=== PATIENT | female | born 1985 | race Caucasian/White ===

== ENCOUNTER → 2022-07-26 | Outpatient (CLI) | payer MEDICARE, MEDICAID, SELFPAY ==
--- NOTE | 2022-07-26 10:48 | ECHOCS_ITS ---
Reason For Study: Dyspnea/SOB Procedure This was a 2D Doppler, Color Flow transthoracic echocardiogram. The study was technically difficult. Contrast injection was performed. Exam performed in department. Left Ventricle Normal LV size. Left ventricular systolic function is normal. The estimated ejection fraction is 65 %. No regional wall motion abnormalities noted. Right Ventricle Normal RV size. Normal systolic function. Atria Normal left atrium. Normal right atrium. Mitral Valve Mitral valve not well visualized. Tricuspid Valve Normal tricuspid valve. Mild tricuspid valve insufficiency. Pulmonary artery systolic pressure is 28 mmHg. Aortic Valve The aortic valve is not well visualized. Pulmonic Valve The pulmonic valve is not well visualized. Great Vessels Normal aortic root. Pericardium/Pleural No pericardial effusion. Medication 20 gauge I.V. with prn adaptor inserted into right arm. Diluted definity 2.5ml given slow IV push to enhance endocardial definition. MMode/2D Measurements & Calculations LVIDd: 4.1 cm IVSd: 1.1 cm Ao root diam: 3.0 cm LVIDs: 2.7 cm LVPWd: 1.2 cm LA dimension: 3.8 cm RVDd: 3.5 cm FS: 33.9 % LAV(MOD-bp): 35.4 ml LA A4 area: 18.3 cm2 RA A4 area: 13.6 cm2 LAV(MOD-bp) Indexed: 16.0 ml/m2 LAV(MOD-sp2): 23.6 ml LAV(MOD-sp4): 50.2 ml Time Measurements MV dec time: 0.21 sec Doppler Measurements & Calculations MV E max jori: 81.1 cm/sec Lat Peak E' Jori: 11.5 cm/sec Med Peak E' Jori: 10.1 cm/sec MV A max jori: 81.6 cm/sec E/E' lat: 7.1 E/E' med: 8.0 MV E/A: 0.99 MV V2 max: 94.2 cm/sec MV P1/2t max jori: 95.1 cm/sec Ao V2 max: 156.0 cm/sec MV max P.5 mmHg MV P1/2t: 67.4 msec Ao max P.7 mmHg MV V2 mean: 49.6 cm/sec MV dec slope: 413.0 cm/sec2 Ao V2 mean: 112.5 cm/sec MV mean P.2 mmHg Ao mean P.7 mmHg MV V2 VTI: 26.0 cm MVA(P1/2t): 3.3 cm2 Ao V2 VTI: 32.3 cm LV V1 max: 127.8 cm/sec PA V2 max: 123.7 cm/sec TR max jori: 247.5 cm/sec LV V1 max P.5 mmHg PA V2 mean: 88.1 cm/sec TR max P.5 mmHg LV V1 mean P.3 mmHg LV V1 mean: 98.8 cm/sec LV V1 VTI: 28.9 cm ECHO/Echo Complete W/ Contrast Interpretation Summary Normal LV size. Left ventricular systolic function is normal. The estimated ejection fraction is 65 %. Pulmonary artery systolic pressure is 28 mmHg. Contrast injection was performed. Ordering Physician: Sandoval Melo Referring Physician: Cat Frausto Performed By: Chuck Lopez RCS
== END | disposition home or self-care (01) ==
LOC: CVS 10:46
PROVIDERS: PCP Physician Assistant Medical; Visit Provider Internal Medicine Critical Care Medicine
DX: R06.02 Shortness of breath (principal)
CPT/HCPCS: 93306; Q9957; A4216; C8929

== ENCOUNTER → 2022-11-10 | Outpatient (CLI) | payer MEDICARE, MEDICAID, SELFPAY ==
[2022-11-10 12:37] LABS: Erythrocyte Sedimentation Rate 16 mm/hr (0-30)
[2022-11-10 12:49] LABS: Absolute Lymphocyte Count 2.41 X10^3/uL (0.83-4.51); Absolute Neutrophil Count 6.9 X10^3/uL (2.0-7.7); Basophil# 0.03 X10^3/uL; Basophil% 0.3 % (0-1); Eosinophil# 0.15 X10^3/uL; Eosinophils% 1.5 % (0-5); Hematocrit 42.4 % (37-47); Lymphocyte # 2.41 X10^3/ul (0.83-4.51); Lymphocyte % 23.7 % (19-41); Mean Corpuscular Hgb 29.2 pg (27.0-32.0); Mean Corpuscular Volume 88.5 fL (81-99); Mean Platelet Vol. 9.5 fl (6.2-12.0); Monocyte# 0.65 X10^3/uL; Monocyte% 6.4 % (0-10); NRBC Flagged by Analyzer 0 % (0-5); Neutrophil # 6.89 X10^3/uL (2.7-7.7); Neutrophil % 67.7 % (47-70); Platelet Count 406 K/mm3 (150-450); RBC Distribution Width CV 12.1 % (11.6-14.6); RBC Distribution Width SD 39.6 fl (35.1-43.9); Red Blood Count 4.79 M/mm3 (4.2-5.4); White Blood Count 10.2 K/mm3 (4.4-11.0)
[2022-11-10 13:05] LABS: ALB/GLOB Ratio 0.9 RATIO (0.9-2.4); AST(SGOT) 33 U/L (15-37); Alanine Aminotransfer ALT/SGPT 41 U/L (13-56); Albumin, Serum 3.4 g/dL (3.2-5.0); Alkaline Phosphatase 92 U/L (45-117); Anion Gap 8 (5-15); BUN 11 mg/dL (7-18); BUN/Creat Ratio 15.4 RATIO (10-20); Calcium,Total 8.9 mg/dL (8.5-10.1); Chloride 104 mmol/L (98-107); Creatinine, Serum 0.72 mg/dL (0.55-1.02); EST Glomerular Filtration Rate 97 mL/min (>60); Est Glom Filt Rate - Afr Amer 118 mL/min (>60); Globulin 3.8 g/dL (2.2-4.2); Glucose 135 mg/dL (74-106); LDH 186 U/L (84-246); Potassium 3.1 mmol/L (3.5-5.1); Protein, Total 7.2 g/dL (6.4-8.2); Sodium Level 138 mmol/L (136-145)
[2022-11-11 16:10] LABS: Anti-Centromere B Ab <0.2 AI (0.0-0.9); Anti-Chromatin <0.2 AI (0.0-0.9); Anti-Jo <0.2 AI (0.0-0.9); Anti-Scleroderma-70 AB <0.2 AI (0.0-0.9); RNP Ab <0.2 AI (0.0-0.9); SJOGREN'S Anti-SS-A test < 0.2 AI (0.0-0.9); SJOGREN'S Anti-SS-B test < 0.2 AI (0.0-0.9); Smith Ab <0.2 AI (0.0-0.9)
[2022-11-11 19:37] LABS: Anti-dsDNA Ab 1 IU/mL (0-9)
[2022-11-13 12:09] LABS: Albumin 3.7 g/dL (2.9-4.4); Alpha-1-Globulins 0.3 g/dL (0.0-0.4); Alpha-2-Globulins 0.9 g/dL (0.4-1.0); Cytoplasmic Ab (C-ANCA) <1:20 titer (Neg:<1:20); Gamma Globulin 1.3 g/dL (0.4-1.8); Immunoglobulin A 354 mg/dL (87-352); Immunoglobulin E 14 IU/mL (6-495); Immunoglobulin G 1076 mg/dL (586-1602); Immunoglobulin M 123 mg/dL (26-217); PROEL- TOTAL PROTEIN 7.4 g/dL (6.0-8.5)
[2022-11-13 12:37] LABS: Perinuclear Ab (P-ANCA) <1:20 titer (Neg:<1:20)
== END | disposition home or self-care (01) ==
PROVIDERS: PCP Physician Assistant Medical; Referring Provider Nurse Practitioner Adult Health; Visit Provider Nurse Practitioner Adult Health
DX: K52.9 Noninfective gastroenteritis and colitis, unspecified (principal)
CPT/HCPCS: 36415; 80053; 82784; 82785; 83615; 84165; 85025; 85652; 86140; 86225; 86235; 86256; 86334

== ENCOUNTER 2022-11-30 12:20 | Day surgery (SDC) | payer MEDICARE, MEDICAID, SELFPAY ==
[2022-11-30] VITALS (7 sets, daily range): BP systolic 111–133; BP diastolic 60–82; PULSE 64–77; RESP 16–18; TEMP 35.9–36.3; O2SAT 96–100; BMI 44.6
[2022-11-30] MEDS: Lactated Ringers 1,000 ML 15 ML IV (12:46)
--- NOTE | 2022-11-30 13:15 | EGD_PTH ---
PATIENT: YURI LOPEZ LOC: EN U#:[id number] AGE/SX: 37/F ROOM: RE11/30/[address]: Dr. Luis Alberto Ng DO : 1985 BED: DIS: 11/30/2022 SPEC #: [id number] RECD: 11/30/22 16:42 STATUS: ADA REAshwin #: [id number] CLAUDE: 11/30/22 13:[address]: Luis Alberto Ng DEPT: SURGICAL PATHOLOGY RECD BY: Debo Salinas ENTERED: 12/01/22 09:22 SP TYPE: EGD BIOPSY OT DR: TOBY Sierra Tissues: A - Duodenum, NOS B - Esophagus, NOS C - Ileum, NOS D - COLON BIOPSY E - COLON BIOPSY Procedures: Special Stain Group II Surgery Specimen Level IV Alcian Blue/PAS (control) HEADER OPERATION: Colonoscopy, EGD ([place]) with biopsy, polypectomy PRE-OP DIAGNOSIS: Chronic diarrhea TISSUE SUBMITTED: A ? Duodenal biopsy, B ? Distal esophagus biopsy, C ? Terminal ileum, D ? Random biopsies, E ? Splenic flexure polyp MICROSCOPIC DIAGNOSIS A. Duodenal biopsy: Fragments of duodenal mucosa, no pathologic diagnosis. B. Distal esophagus, biopsy: Fragments of gastroesophageal mucosa with chronic inflammation. Intestinal metaplasia (goblet cell metaplasia) not identified. See comment. C. Terminal ileum, biopsy: Fragments of small intestinal mucosa, no pathologic diagnosis. D. Colon, random biopsy: Fragments of colonic mucosa, no pathologic diagnosis. E. Splenic flexure polyp, polypectomy: Hyperplastic polyp. SJ:rg 12/02/2022 COMMENT B. The specimen predominantly consists of gastric mucosa. Alcian blue/PAS stain with matched control is used in the evaluation of the specimen. MICROSCOPIC DESCRIPTION Slides are reviewed. GROSS DESCRIPTION A - Received in fixative is one container labeled with the patient's name and designated duodenal biopsy. The specimen consists of multiple irregular fragments of light hines soft tissue that in aggregate measure 1.0 x 0.3 x 0.1 cm. The specimen is totally submitted in one cassette. B - Received in fixative is one container labeled with the patient's name and designated distal esophagus biopsy. The specimen consists of two irregular fragments of light hines soft tissue that in aggregate measure 0.8 x 0.3 x 0.1 cm. The specimen is totally submitted in one cassette. C - Received in fixative is one container labeled with the patient's name and designated terminal ileum. The specimen consists of multiple irregular fragments of light hines soft tissue that in aggregate measure 1.0 x 0.5 x 0.1 cm. The specimen is totally submitted in one cassette. D - Received in fixative is one container labeled with the patient's name and designated random biopsy. The specimen consists of multiple irregular fragments of light hines soft tissue that in aggregate measure 2.5 x 0.4 x 0.1 cm. The specimen is totally submitted in one cassette. E - Received in fixative is one container labeled with the patient's name and designated splenic flexure polyp. The specimen consists of two irregular fragments of light hines soft tissue that in aggregate measure 0.6 x 0.3 x 0.1 cm. The specimen is totally submitted in one cassette. / SJ:rg 12/01/2022 TC:1 CPT: 85931 x5, 44911
--- NOTE | 2022-11-30 13:24 | HP.PCM_ITS ---
History and Physical Date of Admission: 11/30/22 YURI LOPEZ, is a 37 F who presents to the office today for diarrhea that began May 2022. Had been on doxycycline and zpak but tested negative for C. difficile in May 2022.? Her test in September 2022 was positive for C. difficile, she was treated with Flagyl with some improvement of symptoms.? She has been prescribed vancomycin but has not yet started it, she is concerned about possible allergies since one of her children has a severe allergy to vancomycin.? No prior history of C. difficile however she does report recurrent infectious diarrhea including with E. coli and Salmonella, previously saw infectious disease for that.? Her stool is mostly liquid, cramping pains, inte rmittent bright red blood per rectum, has had nocturnal diarrhea, getting some fecal leakage. 09/2022 crp 3.4, esr 22, celiac negative, indeterminate results from enteric pathogens has daily diarrhea, intermittent blood in stool, abd pain, cramping, nausea no relief with dicyclomine or hyoscyamine egd 2016 neg gomez's 2019 colonoscopy, told to repeat in 10 yrs Ladan 7 yrs ago for reflux, effective but just recently has had some recent reflux, no med for it takes ferrous sulfate for REAL one of her children has a feeding tube due to malabsorption, also had Ladan for severe reflux PSH includes cholecystectomy, appy FH half-brother stomach cancer ROS Const Constitutional: Positive for fatigue and headache(s) ENT ENT: Positive for headache(s); No difficulty swallowing Gastro GI: Positive for abdominal pain, bloating, change in bowel habits, diarrhea, heartburn, excessive flatus, Blood in stool and nausea/dyspepsia; No belching, change in stool character, coffee ground emesis, constipation, cramping, difficulty swallowing, feeling full early, incontinent of stools, Vomiting blood/hematemesis, loose stools, Black,tarry stools, pain with swallowing, vomiting or other Musc Musculoskeletal: Positive for back pain; No joint pain Skin Skin: No yellowing of the eye or itchy eyes Neuro Neurology: Positive for headache(s) Psych Psychiatric: Positive for anxiety and No depression Endo Endocrine: Positive for fatigue Aller/Imm Allergy/Immunologic: No itchy eyes Alex/Lymp Hematologic/Lymphatic: No easy bleeding or easy bruising Exam Const General: cooperative and comfortable Nutritional Appearance: obese Orientation: alert, awake and oriented x3 HENMT Head: normal to inspection Eyes Sclera: sclerae normal Resp Effort & Inspection: normal respiratory effort GI Inspection: obesity Palpation: soft, no hepatosplenomegaly, no masses and tender in the LLQ and in the RLQ Skin General: no rashes or lesions noted Psych Mood: euthymic mood Quality Reporting Tobacco Screening ([facility] 138) Smoking Status: Former smoker Assessment and Plan Assessment and Plan (1) Chronic diarrhea: ?Status:?Chronic ?Plan: 37 yr old female with chronic diarrhea since 05/2022, with abdominal pain and rectal bleeding, negative C diff in 05/2022 but positive C diff in 09/2022, 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 ? ? Orders: Orders Miscellaneous Lab Procedure Today K52.9 - Noninfective gastroenteritis and colitis, unspecified ? Comprehensive Metabolic Profil Today K52.9 - Noninfective gastroenteritis and colitis, unspecified ? CRP Today K52.9 - Noninfective gastroenteritis and colitis, unspecified ? LDH Today K52.9 - Noninfective gastroenteritis and colitis, unspecified ? CBC W/Diff, Automated Today K52.9 - Noninfective gastroenteritis and colitis, unspecified, R06.02 - Shortness of breath ? Erythrocyte Sed Rate Today K52.9 - Noninfective gastroenteritis and colitis, unspecified ? NATHALY Comprehensive Panel Today K52.9 - Noninfective gastroenteritis and colitis, unspecified ? ANCA Today K52.9 - Noninfective gastroenteritis and colitis, unspecified ? Immunoglobulins G/A/M/E Today K52.9 - Noninfective gastroenteritis and colitis, unspecified ? DARVIN + Protein Elect, Serum Today K52.9 - Noninfective gastroenteritis and colitis, unspecified ? Medications: New fidaxomicin (Dificid) 200 mg? PO BID 10 days 20 tabs 0RF ? ? colestipol ?? avoid other meds 1 hr before or 4 hrs after 1 g? PO ONCE 30 tabs 2RF diarrhea ? ? I have examined the patient and the H&P has been reviewed. There are no clinical changes since date of exam.
--- NOTE | 2022-11-30 14:18 | OP.CCLET_ITS ---
11/30/2022 Raymundo Sierra Re : Upper GI endoscopy procedure for Ayanna Wesley Dear Lisbet This procedure was performed on Wednesday, November 30, 2022. My impressions and recommendations are as follows: Impressions : - LA Grade A reflux esophagitis. Biopsied. - A Ladan fundoplication was found. The wrap appears loose. - Erythematous duodenopathy. Recommendations : - Discharge patient to home. - Resume previous diet. - Continue present medications. - Await pathology results. -All percent of the liver with FibroScan and lab work to look for signs of chronic liver disease. My findings are described in the full procedure note, which is enclosed. If I can be of further assistance, please feel free to contact me at . Sincerely, Luis Alberto Friend, 11/30/2022 2:17:42 PM This report has been signed electronically.
--- NOTE | 2022-11-30 14:18 | OP.EGD_ITS ---
Patient Name: Ayanna Wesley Procedure Date: 11/30/2022 1:23 PM Date of : 1985 Age: 37 Procedure: Upper GI endoscopy Indications: Dyspepsia Providers: Luis Alberto Ng DO Medicines: Monitored Anesthesia Care Patient Profile: This is a 37 year old female. Refer to note in patient chart for documentation of history and physical. Patient has symptoms of chronic abdominal cramping, chronic heartburn and chronic nausea. Complications: No immediate complications. Procedure: Pre-Anesthesia Assessment: - Prior to the procedure, a History and Physical was performed, and patient medications and allergies were reviewed. The risks and benefits of the procedure and the sedation options and risks were discussed with the patient. All questions were answered and informed consent was obtained. Patient identification and proposed procedure were verified by the physician in the pre-procedure area. Mental Status Examination: alert and oriented. Airway Examination: normal oropharyngeal airway and neck mobility. Respiratory Examination: clear to auscultation. CV Examination: normal. Prophylactic Antibiotics: The patient does not require prophylactic antibiotics. Prior Anticoagulants: The patient has taken no previous anticoagulant or antiplatelet agents. ASA Grade Assessment: II - A patient with mild systemic disease. After reviewing the risks and benefits, the patient was deemed in satisfactory condition to undergo the procedure. The anesthesia plan was to use moderate sedation / analgesia (conscious sedation). Immediately prior to administration of medications, the patient was re-assessed for adequacy to receive sedatives. The heart rate, respiratory rate, oxygen saturations, blood pressure, adequacy of pulmonary ventilation, and response to care were monitored throughout the procedure. The physical status of the patient was re-assessed after the procedure. After obtaining informed consent, the endoscope was passed under direct vision. Throughout the procedure, the patient's blood pressure, pulse, and oxygen saturations were monitored continuously. The Colonoscope was introduced through the mouth, and advanced to the second part of duodenum. The upper GI endoscopy was accomplished without difficulty. The patient tolerated the procedure well. Scope In: 1:35:03 PM Scope Out: 1:41:03 PM Total Procedure Duration Time 0 hours 6 minutes 0 seconds Findings: LA Grade A (one or more mucosal breaks less than 5 mm, not extending between tops of 2 mucosal folds) esophagitis with no bleeding was found 36 to 38 cm from the incisors. Biopsies were taken with a cold forceps for histology. Verification of patient identification for the specimen was done. Estimated blood loss was minimal. There was also possible small varices in the distal esophagus. Evidence of a Ladan fundoplication was found in the cardia. The wrap appeared loose. This was traversed. The exam of the stomach was otherwise normal, except for some mild portal gastropathy possibly secondary to chronic liver disease. Patchy mildly erythematous mucosa without active bleeding and with no stigmata of bleeding was found in the first portion of the duodenum. Impression: - LA Grade A reflux esophagitis. Biopsied. - A Ladan fundoplication was found. The wrap appears loose. - Erythematous duodenopathy. Recommendation: - Discharge patient to home. - Resume previous diet. - Continue present medications. - Await pathology results. -All percent of the liver with FibroScan and lab work to look for signs of chronic liver disease. Procedure Code(s): --- Professional --- 15146, Esophagogastroduodenoscopy, flexible, transoral; with biopsy, single or multiple CPT copyright 2017 [employer]. All rights reserved. The codes documented in this report are preliminary and upon shop superintendent review may be revised to meet current compliance requirements. Luis Alberto Ng DO 11/30/2022 2:17:42 PM This report has been signed electronically. Number of Addenda: 0 Note Initiated On: 11/30/2022 1:23 PM
--- NOTE | 2022-11-30 14:21 | OP.COLON_ITS ---
Patient Name: Ayanna Wesley Procedure Date: 11/30/2022 1:41 PM Date of : 1985 Age: 37 Procedure: Colonoscopy Indications: Chronic diarrhea Providers: Luis Alberto Ng DO Medicines: Monitored Anesthesia Care Patient Profile: This is a 37 year old female. Refer to note in patient chart for documentation of history and physical. Patient has symptoms of chronic abdominal cramping, chronic heartburn and chronic nausea. Last Colonoscopy: more than 10 years ago. Complications: No immediate complications. Procedure: Pre-Anesthesia Assessment: - Prior to the procedure, a History and Physical was performed, and patient medications and allergies were reviewed. The risks and benefits of the procedure and the sedation options and risks were discussed with the patient. All questions were answered and informed consent was obtained. Patient identification and proposed procedure were verified by the physician in the pre-procedure area. Mental Status Examination: alert and oriented. Airway Examination: normal oropharyngeal airway and neck mobility. Respiratory Examination: clear to auscultation. CV Examination: normal. Prophylactic Antibiotics: The patient does not require prophylactic antibiotics. Prior Anticoagulants: The patient has taken no previous anticoagulant or antiplatelet agents. ASA Grade Assessment: II - A patient with mild systemic disease. After reviewing the risks and benefits, the patient was deemed in satisfactory condition to undergo the procedure. The anesthesia plan was to use moderate sedation / analgesia (conscious sedation). Immediately prior to administration of medications, the patient was re-assessed for adequacy to receive sedatives. The heart rate, respiratory rate, oxygen saturations, blood pressure, adequacy of pulmonary ventilation, and response to care were monitored throughout the procedure. The physical status of the patient was re-assessed after the procedure. After I obtained informed consent, the scope was passed under direct vision. Throughout the procedure, the patient's blood pressure, pulse, and oxygen saturations were monitored continuously. The Colonoscope was introduced through the anus and advanced to the terminal ileum. The colonoscopy was performed without difficulty. The patient tolerated the procedure well. The quality of the bowel preparation was good. Scope In: 1:44:17 PM Scope Withdrawal Time 0 hours 14 minutes 52 seconds Scope Out: 2:03:51 PM Total Procedure Duration Time 0 hours 19 minutes 34 seconds Findings: The perianal and digital rectal examinations were normal. A 5 mm polyp was found in the splenic flexure. The polyp was sessile. The polyp was removed with a hot snare. Resection and retrieval were complete. Verification of patient identification for the specimen was done. Estimated blood loss was minimal. An area of mildly congested mucosa was found in the sigmoid colon, at the splenic flexure, in the transverse colon and at the hepatic flexure. Biopsies were taken with a cold forceps for histology. Verification of patient identification for the specimen was done. Estimated blood loss was minimal. The terminal ileum appeared normal. Biopsies were taken with a cold forceps for histology. Verification of patient identification for the specimen was done. Estimated blood loss was minimal. Impression: - One 5 mm polyp at the splenic flexure, removed with a hot snare. Resected and retrieved. - Congested mucosa in the sigmoid colon, at the splenic flexure, in the transverse colon and at the hepatic flexure. Biopsied. - The examined portion of the ileum was normal. Biopsied. Recommendation: - Discharge patient to home. - Resume previous diet. - Continue present medications. - Await pathology results. - Repeat colonoscopy in 5 years for surveillance. Procedure Code(s): --- Professional --- 26557, Colonoscopy, flexible; with removal of tumor(s), polyp(s), or other lesion(s) by snare technique 20828, 59, Colonoscopy, flexible; with biopsy, single or multiple CPT copyright 2017 [employer]. All rights reserved. The codes documented in this report are preliminary and upon mangle tender cloth review may be revised to meet current compliance requirements. Luis Alberto Ng DO 11/30/2022 2:20:24 PM This report has been signed electronically. Number of Addenda: 0 Note Initiated On: 11/30/2022 1:41 PM
--- NOTE | 2022-11-30 14:21 | OP.CCLET_ITS ---
11/30/2022 Raymundo Sierra Re : Colonoscopy procedure for Ayanna Wesley Dear Lisbet This procedure was performed on Wednesday, November 30, 2022. My impressions and recommendations are as follows: Impressions : - One 5 mm polyp at the splenic flexure, removed with a hot snare. Resected and retrieved. - Congested mucosa in the sigmoid colon, at the splenic flexure, in the transverse colon and at the hepatic flexure. Biopsied. - The examined portion of the ileum was normal. Biopsied. Recommendations : - Discharge patient to home. - Resume previous diet. - Continue present medications. - Await pathology results. - Repeat colonoscopy in 5 years for surveillance. My findings are described in the full procedure note, which is enclosed. If I can be of further assistance, please feel free to contact me at . Sincerely, Luis Alberto Ng, DO 11/30/2022 2:20:24 PM This report has been signed electronically.
== END 2022-11-30 14:58 | disposition home or self-care (01) ==
LOC: EN 12:22 → AC 12:23
PROVIDERS: PCP Physician Assistant Medical; Referring Provider Physician Assistant Medical; Visit Provider Internal Medicine Gastroenterology
PROC: 0DJD8ZZ Inspection of Lower Intestinal Tract, Via Natural or Artificial Opening Endoscopic (ICD-10-PCS; CPT 45378; principal; 2022-11-30 13:10)
DX: K63.89 Other specified diseases of intestine (principal); Z68.41 Body mass index [BMI] 40.0-44.9, adult; K31.89 Other diseases of stomach and duodenum; K21.00 Gastro-esophageal reflux disease with esophagitis, without bleeding; K63.5 Polyp of colon; G47.30 Sleep apnea, unspecified; E66.9 Obesity, unspecified; F41.9 Anxiety disorder, unspecified; J98.4 Other disorders of lung; R00.0 Tachycardia, unspecified; E55.9 Vitamin D deficiency, unspecified; Z79.899 Other long term (current) drug therapy; Z87.891 Personal history of nicotine dependence
CPT/HCPCS: 45380; 45385; 43239; 88305; 88313; J7120; J2405

== ENCOUNTER → 2023-11-18 | Outpatient (CLI) | payer MEDICARE, MEDICAID, SELFPAY ==
[2023-11-18 11:48] LABS: Erythrocyte Sedimentation Rate 16 mm/hr (0-30)
== END | disposition home or self-care (01) ==
LOC: LAB 11:07
PROVIDERS: PCP Physician Assistant Medical; Referring Provider Internal Medicine Gastroenterology; Visit Provider Internal Medicine Gastroenterology
DX: A49.8 Other bacterial infections of unspecified site (principal)
CPT/HCPCS: 36415; 85652; 86140

== ENCOUNTER → 2023-11-30 | Outpatient (CLI) | payer MEDICARE, MEDICAID, SELFPAY ==
--- NOTE | 2023-11-30 11:11 | US_ITS ---
STUDY: ABDOMINAL ULTRASOUND - RIGHT UPPER QUADRANT REASON FOR VISIT: Female, 38 years old RUQ ? Salmonella in gallbladder TECHNIQUE: Ultrasound evaluation of the right upper quadrant was performed with real-time and static duvall-scale imaging. TECHNICAL QUALITY: Adequate. COMPARISON: None. FINDINGS: Liver: The liver is mildly enlarged and measures 17.9 cm. There is increased echogenicity consistent with fatty infiltration. The bile ducts are within normal limits. There is hepatic color flow. The direction of portal flow is hepatopetal. There is no demonstrated mass lesion. Gallbladder: The patient is status post cholecystectomy. Common Bile Duct (C.B.D.): The common bile duct measures 2.7 mm. Pancreas: Normal size of the head, body and tail of the pancreas. There is normal echogenicity of the pancreas. There is no demonstrated pancreatic mass or cyst. Right Kidney: Normal size of the right kidney. The right kidney measures 10.5 cm x 7 cm x 4.9 cm. Normal renal cortex. The right cortex measures 1.3 cm. There is no demonstrated renal mass or cyst. There is no right hydronephrosis. US/Abdomen Limited IMPRESSION: Mild hepatomegaly and diffuse fatty infiltration of the liver. Electronically Signed: Santiago Chang MD at 9:29 EDT ,
== END | disposition home or self-care (01) ==
PROVIDERS: PCP Physician Assistant Medical; Referring Provider Internal Medicine Gastroenterology; Visit Provider Internal Medicine Gastroenterology
DX: A02.9 Salmonella infection, unspecified (principal); A49.8 Other bacterial infections of unspecified site; K52.9 Noninfective gastroenteritis and colitis, unspecified; R10.11 Right upper quadrant pain
CPT/HCPCS: 76705

== ENCOUNTER 2024-06-18 11:08 | Day surgery (SDC) | payer MEDICARE, MEDICAID, SELFPAY ==
[2024-06-18] VITALS (8 sets, daily range): BP systolic 119–140; BP diastolic 69–83; PULSE 78–87; RESP 16–18; TEMP 36.3–36.6; O2SAT 93–100; BMI 40.0
--- NOTE | 2024-06-18 | IMM_PTH ---
PATIENT: YURI LOPEZ LOC: EN U#:[id number] AGE/SX: 38/F ROOM: RE06/18/[address]: Dr. Luis Alberto Ng DO : 1985 BED: DIS: 06/18/2024 SPEC #: [id number] RECD: 06/18/24 14:35 STATUS: ADA REQ #: [id number] CLAUDE: 06/18/24 00:[address]: Luis Alberto Ng DEPT: IMMUNOHISTOCHEMISTRY RECD BY: Pancho Chen ENTERED: 06/18/24 14:35 SP TYPE: IMMUNO OTHR DR: TOBY Sierra Tissues: B - Gastric mucous membrane Procedures: H Pylori (initial) PHYSICIAN & INSTITUTION [place] [id number] SPECIMEN INFORMATION: Tissue Source: B- Pyloric channel ulcer biopsy Clinical Info: Chronic diarrhea, GERD Specimen Number: [id number] CPT code: 42135 METHODOLOGY: Deparaffinized sections of prefer/formalin-fixed tissue or PAP/DQ stained slides are incubated with monoclonal/polyclonal antibodies/oligonucleotide probes. Localization is made via biotin free immunoperoxidase method. Appropriate controls are performed and reacted as expected. Results on target cell population are indicated in the following table: RESULTS: ANTIBODY / CLONE RESULT Block B H Pylori (polyclonal) negative These tests were developed and their performance characteristics determined by [facility]. They may not have been cleared or approved by the U.S. Food and Drug Administration. The FDA has determined that such clearance or approval is not necessary. The above immunohistochemical/dualISH markers are ordered and reviewed by the Pathologist. INTERPRETATION: B. Pyloric channel ulcer, biopsy: Negative for Helicobacter pylori organisms. 06/19/2024
--- NOTE | 2024-06-18 11:37 | HP.PCM_ITS ---
History and Physical Date of Admission: 06/18/24 YURI LOPEZ, is a 38 F who presents to the office today for f/u. Prior workup: ? Ladan 2016 for reflux ? Stool C.Difficile WNL. ? Stool C.Difficile +? Start Flagyl and vancomycin (vancomycin delayed start r/t? a child with severe allergy). ? *I established 11.10.22 with loose stools since following doxycycline and ZPak use. Reports C.difficile infection as the initial occurrence; but has had recurrent E.Coli and salmonella stool infections with treatment by ID. Currently stools are liquid with abdominal cramping and blood with intermittent fecal leaking. Idiopathic anemia treated with oral iron. Start colestipol ? Biochemical 11.10.22 CBC, ESR, CMP (K+ 3.1), GA(H 354)ME, NATHALY comp, ANCA, DARVIN, IBD without pertinent abnormality.? CRP H28.7 ? EGD and colonoscopy 01.25.23 EGD LA Grade A esophagitis without metaplasia; Ladan wrap loose; mild portal gastropathy; duodenitis. ? Colonoscopy single hyperplastic polyp; congested mucosa. Random biopsies without pathologic changes Contact 05.11.23 as f/u noting continued episodes of loose stools multiple times a week. Requesting labs to be drawn at [facility] ? Stool OSH calprotectin, elastase, lactoferrin, EP, O/P, giardia WNL? CDifficile PCR +, toxin B? Start difficid 05.18.23 OV 06.01.23 for the last week she has been without loose stools. Difficid ended Tuesday. OV 315.24 continues to have loose stools and abdominal cramping with urgency related incontinence on random days throughout the week; will often last several days and then spontaneously resolve. OV 05.25.24 Pt recently started ozempic and went through a period of constipation. She was taking colace and miralax every other day. She is now back to having diarrhea with a significant flare about a week ago. She was going 5o+ times within a 24 hour period. This is similar to when she has had c.dif in the past. Her stool is starting to become more formed now. Her heartburn and nausea is persistent and much worse after starting the ozempic. She increased omeprazole to twice daily and added famotidine BID as well. This has been somewhat helpful. She likes being on the ozempic as it is lower her A1c and helping her lose weight but she knows some of these symptoms may be related to it. ROS Const Constitutional: Positive for weight change (weight loss); No fatigue or fever(s) ENT ENT: No difficulty swallowing Gastro GI: Positive for diarrhea, heartburn and Blood in stool; No abdominal pain, belching, bloating, change in bowel habits, change in stool character, coffee ground emesis, constipation, cramping, difficulty swallowing, feeling full early, excessive flatus, incontinent of stools, Vomiting blood/hematemesis, loose stools, Black,tarry stools, nausea/dyspepsia, pain with swallowing, vomiting or other Musc Musculoskeletal: Positive for back pain; No joint pain Skin Skin: No yellowing of the eye or itchy eyes Psych Psychiatric: Positive for anxiety and No depression Endo Endocrine: Positive for weight change (weight loss); No fatigue Aller/Imm Allergy/Immunologic: No itchy eyes Alex/Lymp Hematologic/Lymphatic: No easy bleeding or easy bruising Exam Const General: cooperative and comfortable Nutritional Appearance: average body habitus and well nourished [facility] Head: normal to inspection Ears: hearing grossly normal bilaterally Nose: external nose normal Face and sinus: normal facial exam Eyes General: appearance normal, both eyes and all related structures Neck Neck: normal visual inspection Chest Chest palpation & inspection: normal inspection of the chest Resp Effort & Inspection: normal respiratory effort GI Inspection: normal to inspection Skin General: no rashes or lesions noted Neuro General: patient alert Extrem General: normal to inspection Psych Affect: normal affect Assessment and Plan Assessment and Plan (1) Chronic diarrhea: Status: Chronic Comment: Historical (2) GERD (gastroesophageal reflux disease): Status: Acute Plan: Patient is a 38 yo female with PMHx of fatty liver, GERD, diarrhea and c.dif. She is here today for f/u. Since starting ozempic a few months ago she has worsening heartburn and some difficulty swallowing. Her PCP put her on omeprazole and famotidine BID. This has been helpful but she continues to have some heartburn. I will order a GES to assess her stomach motility as she has refractory reflux. She will also undergo EGD to look for signs of esophagitis or gastritis. About a week ago she was having severe diarrhea with 50+ bowel movements in a day. This was similar to when she has had c.dif. I will order stool testing to rule out infection or inflammation. She has had c.dif three times and she may need to have infusion therapy if she continues to have these infections. She has hx of fatty liver but has never had elastography; this was ordered. She is agreeable to this plan. She will f.u in 3 months -EGD -GES ordered -Stool testing -Liver elastogprahy -f/u in 3 months (3) Steatosis of liver: Status: Acute Orders: Orders ENTERIC PATHOGEN PANEL STOOL Today K58.9 - Irritable bowel syndrome without diarrhea, R19.7 - Diarrhea, unspecified Ova and Parasites 8623 Today K58.9 - Irritable bowel syndrome without diarrhea Pancreatic Elastase, Fecal Today K52.9 - Noninfective gastroenteritis and colitis, unspecified Stool Lactoferrin/WBC Today K58.9 - Irritable bowel syndrome without diarrhea Giardia Lamblia, Stool EIA Today K52.9 - Noninfective gastroenteritis and colitis, unspecified CDIFF (PCR) Today K52.9 - Noninfective gastroenteritis and colitis, unspecified Calprotectin, Stool Today K52.9 - Noninfective gastroenteritis and colitis, unspecified Gastric Emptying Study Today K21.9 - Gastro-esophageal reflux disease without esophagitis ABD Limited w/ Elastography Today K76.0 - Fatty (change of) liver, not elsewhere classified EGD 06/18/24 K21.9 - Gastro-esophageal reflux disease without esophagitis, K52.9 - Noninfective gastroenteritis and colitis, unspecified I have examined the patient and the H&P has been reviewed. There are no clinical changes since date of exam.
--- NOTE | 2024-06-18 11:43 | PCM.PRE.AN2 ---
ASA Classification* ASA Classification ASA Classification: 3 Assessment & Plan Anesthesia* Anesthesia Assessment Anesthesia Assessment: Discussed sedation and/or anesthesia options, risks, benefits, and alternatives with patient/parents/legal guardian/POA. Questions invited. The patient/parents/legal guardian/POA seems to understand and agrees to proceed with anesthesia plan. Reviewed the physical assessment, medical history, allergy history and patient home medications list prior to surgery/procedure/anesthetic and documented any changes. Performed airway and anesthesia risk assessments. Anesthesia Type Anesthesia Type: MAC Anesthesia Focused Assessment* Temperature: 97.3 F Pulse Rate: 80 Blood Pressure: 140/83 Respiratory Rate: 18 Pulse Ox: 100 Airway Assessment Mouth opens: >3 cm Mallampati Score: II Focused Labs Anesthesia Preop lab: CBC WBC 10.2 K/mm3 (4.4-11.0) 11/10/22 11:31 RBC 4.79 M/mm3 (4.2-5.4) 11/10/22 11:31 Hgb 14.0 g/dL (12.0-15.0) 11/10/22 11:31 Hct 42.4 % (37-47) 11/10/22 11:31 Plt Count 406 K/mm3 (150-450) 11/10/22 11:31 CHEMISTRY Potassium 3.1 mmol/L (3.5-5.1) L 11/10/22 11:31 Sodium 138 mmol/L (136-145) 11/10/22 11:31 BUN 11 mg/dL (7-18) 11/10/22 11:31 Creatinine 0.72 mg/dL (0.55-1.02) 11/10/22 11:31 Glucose 135 mg/dL (74-106) H 11/10/22 11:31 COAG Pre-Assessment Diagnosis/Proposed Procedure Planned Operative Procedure(s): EGD Anesthesia History 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 When Was Last Pacemaker Check QUESTION #4 FULL TEXT: You/Your Family Experience fever (hyperthermia) with Anesthesia Last Oral Intake Last Oral intake: Last Oral Intake NPO since 00:00 06/18/24 11:31 Meds taken in AM with sips of Yes 06/18/24 11:31 water? Meds patient instructed to take am of surgery PONV PONV - loop drier operator: PONV - loop drier operator Female Yes 06/13/24 10:48 HX of Motion Sickness No 06/13/24 10:48 HX of N/V After Surgery No 06/13/24 10:48 Non-Smoker Yes 06/13/24 10:48 Duration of Surgery greater No 06/13/24 10:48 than 60 minutes Number of Risk Factors 2 06/13/24 10:48 PONV Score Moderate Risk 06/13/24 10:48 Height & Weight Height & Weight: Anesthesia: Height & Weight Height 5 ft 4 in 06/18/24 11:31 Weight: 105.868 kg 06/18/24 11:31 Body Mass Index (BMI) 40.0 06/18/24 11:31 Respiratory Assessment Respiratory Assessment - loop drier operator: Respiratory Tract Infection Hx - loop drier operator Hx Respiratory Tract Infection No 06/13/24 10:48 STOP Sleep Apnea STOP Sleep Apnea - loop drier operator: STOP Sleep Apnea - loop drier operator Hx Hypertension No 06/13/24 10:48 Hx Sleep Apnea Yes: NO MACHINE 06/13/24 10:48 CPAP No 06/13/24 10:48 BIPAP No 06/13/24 10:48 Do you snore loudly (louder than talking or can be heard Do you often feel tired/ fatigued/ sleepy during daytime? Has anyone observed you stop breathing during sleep? STOP Results Positive 06/13/24 10:48 QUESTION #5 FULL TEXT : Do you snore loudly (louder than talking or can be heard through closed doors)? Tobacco Use History Tobacco Use History - loop drier operator: Tobacco Use History - loop drier operator Tobacco Use Smoking Status Former smoker 06/13/24 10:48 Hx Tobacco Use No 06/13/24 10:48 Years Smoking Packs Smoked per Day Smoking Cessation Date was Yes - quit smoking within 15 06/13/24 10:48 within the last 15 years years Hx Smoking Cessation Date Hx Smoking Cessation No 06/13/24 10:48 Counseling Hematologic Medial History Hematologic Hx - loop drier operator: Hematologic Medical Hx - information services consultant Hx of Blood Transfusion No 06/13/24 10:48 Hx of Transfusion in last 3 No 06/13/24 10:48 Months Date of Last Transfusion (if within last 3 months) Ever experience any problems No 06/13/24 10:48 with transfusion(s)? Specify any problems Hx of Preganancy in last 3 No 06/13/24 10:48 Months Nurse Filling Out Transfusion VCHRISTIN 06/13/24 10:48 & Questions: Date: 06/13/24 06/13/24 10:48 Time: 10:50 06/13/24 10:48 Patient unable to answer at this time (ie. 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 Iron deficiency anemia Hypercholesteremia Chiari malformation Arthralgia of right temporomandibular joint Allergic rhinitis Abdominal pain Migraine without aura, intractable, with status migrainosus Anxiety Bloody diarrhea Alternating constipation and diarrhea Low vitamin B12 level Vitamin D deficiency Low ferritin Home Medications ?Medication ?Instructions ?Recorded ?Last Taken ?Type cholecalciferol (vitamin D3) 1,250 1,250 mcg PO 2XW 07/15/22 06/13/24 History mcg (50,000 unit) tablet (Dialyvite Vitamin D3 Max) ferrous sulfate 325 mg (65 mg 325 mg PO DAILY 07/15/22 06/10/24 History iron) tablet (Feosol) lorazepam 1 mg tablet (Ativan) 1 mg PO DAILY PRN Anxiety 07/15/22 Unknown History mecobalamin (vitamin B12) 1,000 1,000 mcg PO DAILY 07/15/22 06/17/24 History mcg chewable tablet metoprolol tartrate 50 mg tablet 25 mg PO BID 07/15/22 06/18/24 History (Lopressor) albuterol sulfate 90 mcg/actuation 2 puff inhalation Q6H PRN SOB 09/16/22 Unknown History aerosol inhaler pregabalin 25 mg capsule (Lyrica) 25 mg PO .QAM 01/25/24 06/17/24 History famotidine 20 mg tablet 20 mg PO BID 05/25/24 06/16/24 History omeprazole 20 mg capsule,delayed 20 mg PO BID 05/25/24 06/16/24 History release semaglutide 0.25 mg or 0.5 mg (2 0.5 mg subcut QWEEK 05/25/24 06/01/24 History mg/1.5 mL) subcutaneous pen injector (Ozempic) fluticasone propionate 50 1 spray intranasal DAILY PRN 06/13/24 06/17/24 History mcg/actuation nasal allergy symptoms spray,suspension (24 Hour Allergy Relief) pregabalin 50 mg capsule (Lyrica) 50 mg PO QHS 06/13/24 06/17/24 History Allergy/AdvReac Type Severity Reaction Status Date / Time levofloxacin (From Levaquin) AdvReac extreme Verified 06/18/24 11:29 dizziness Penicillins AdvReac hives Verified 06/18/24 11:29 Family History Mother Hypertension Father Malignant neoplasm of urinary bladder Brother Malignant neoplasm of stomach Grandmother Cancer Grandfather Myocardial infarction FHx: thyroid disease Surgical History Hx of colonoscopy History of bilateral tubal ligation S/P trigger finger release Hx of tonsillectomy History of loop electrosurgical excision procedure (LEEP) Status post laparoscopic Ladan fundoplication S/P excision of lipoma H/O laparoscopy H/O left knee surgery H/O foot surgery History of esophagogastroduodenoscopy H/O colonoscopy Hx of cholecystectomy Previous section History of carpal tunnel surgery of right wrist H/O cardiac catheterization History of appendectomy H/O abdominal surgery Social History Smoking Status: Former smoker quit date: 04/05/07 Review of Systems (Anesthesia) ROS Narrative System reviewed and no additional complaints, except as documented.
--- NOTE | 2024-06-18 12:00 | EGD_PTH ---
PATIENT: YURI LOPEZ LOC: EN U#:[id number] AGE/SX: 38/F ROOM: RE06/18/[address]: Dr. Luis Alberto gN DO : 1985 BED: DIS: 06/18/2024 SPEC #: [id number] RECD: 06/18/24 13:41 STATUS: ADA REAshwin #: [id number] CLAUDE: 06/18/24 12:[address]: Luis Alberto Ng DEPT: SURGICAL PATHOLOGY RECD BY: Uri Hill ENTERED: 06/18/24 14:07 SP TYPE: EGD BIOPSY OTHR DR: TOBY Sierra Tissues: A - Duodenum, NOS B - Gastric mucous membrane C - Esophagus, NOS Procedures: Special Stain Group I Surgery Specimen Level IV Alcian Blue/PAS (control) HEADER OPERATION: EGD with biopsies PRE-OP DIAGNOSIS: Chronic diarrhea, GERD TISSUE SUBMITTED: A- Duodenum biopsy, B- Pyloric sphincter ulcer biopsy, C- Distal esophagus biopsy MICROSCOPIC DIAGNOSIS A. Duodenum, biopsy: A fragment of duodenal mucosa with chronic inflammation. A fragment of gastric mucosa with chronic inflammation. See comment. B. Pyloric sphincter ulcer, biopsy: Mild gastritis. See microscopic description and comment. C. Distal esophagus, biopsy: Fragments of gastroesophageal mucosa with chronic inflammation. Intestinal metaplasia (goblet cell metaplasia) not identified. See comment. 06/19/2024 COMMENT A. The findings may represent gastric metaplasia. B. The results of immunohistochemistry for Helicobacter pylori will be reported separately ([id number]). C. Alcian blue/PAS stain with matched control is used in the evaluation of the specimen. MICROSCOPIC DESCRIPTION Slides are reviewed. B. The specimen shows fragments of gastric mucosa with chronic inflammatory cell infiltrates in the lamina propria consisting of lymphocytes and plasma cells, consistent with mild chronic gastritis. Focal mucosal congestion and hemorrhage are also noted. GROSS DESCRIPTION A. Received in fixative is one container labeled with the patient's name and designated Duodenum biopsy. The specimen consists of two irregular fragments of light hines soft tissue that in aggregate measure 0.8 x 0.5 x 0.1 cm. The specimen is totally submitted in one cassette. B. Received in fixative is one container labeled with the patient's name and designated Pyloric channel ulcer biopsy. The specimen consists of multiple irregular fragments of light hines soft tissue that in aggregate measure 0.6 x 0.2 x 0.1 cm. The specimen is totally submitted in one cassette. C. Received in fixative is one container labeled with the patient's name and designated Distal esophagus biopsy. The specimen consists of two irregular fragments of light hines soft tissue that in aggregate measure 0.6 x 0.3 x 0.1 cm. The specimen is totally submitted in one cassette. SJ.mr 06/18/2024 TC:3 CPT:[id number]
--- NOTE | 2024-06-18 12:34 | OP.EGD_ITS ---
Patient Name: Ayanna Wesley Procedure Date: 06/18/2024 12:14 PM Date of : 1985 Age: 38 Procedure: Upper GI endoscopy Indications: Epigastric abdominal pain, Functional Dyspepsia, Dysphagia Providers: Luis Alberto Ng DO Medicines: Monitored Anesthesia Care Patient Profile: This is a 38 year old female. Refer to note in patient chart for documentation of history and physical. Patient has symptoms of chronic abdominal distention, chronic dysphagia and chronic dyspepsia. Complications: No immediate complications. Procedure: Pre-Anesthesia Assessment: - Prior to the procedure, a History and Physical was performed, and patient medications and allergies were reviewed. The patient is competent. The risks and benefits of the procedure and the sedation options and risks were discussed with the patient. All questions were answered and informed consent was obtained. Patient identification and proposed procedure were verified by the physician in the pre-procedure area. Mental Status Examination: alert and oriented. Airway Examination: normal oropharyngeal airway and neck mobility. Respiratory Examination: clear to auscultation. CV Examination: normal. Prophylactic Antibiotics: The patient does not require prophylactic antibiotics. Prior Anticoagulants: The patient has taken no anticoagulant or antiplatelet agents except for NSAID medication. ASA Grade Assessment: II - A patient with mild systemic disease. After reviewing the risks and benefits, the patient was deemed in satisfactory condition to undergo the procedure. The anesthesia plan was to use monitored anesthesia care (MAC). Immediately prior to administration of medications, the patient was re-assessed for adequacy to receive sedatives. The heart rate, respiratory rate, oxygen saturations, blood pressure, adequacy of pulmonary ventilation, and response to care were monitored throughout the procedure. The physical status of the patient was re-assessed after the procedure. After obtaining informed consent, the endoscope was passed under direct vision. Throughout the procedure, the patient's blood pressure, pulse, and oxygen saturations were monitored continuously. The gastroscope was introduced through the mouth, and advanced to the second part of duodenum. The upper GI endoscopy was accomplished without difficulty. The patient tolerated the procedure well. Scope In: 12:24:51 PM Scope Out: 12:29:19 PM Total Procedure Duration Time 0 hours 4 minutes 28 seconds Findings: The Z-line was irregular and was found 39 cm from the incisors. Biopsies were taken with a cold forceps for histology. Verification of patient identification for the specimen was done. Estimated blood loss was minimal. Diffuse moderate inflammation characterized by erosions and erythema was found in the gastric body. One non-bleeding cratered gastric ulcer with no stigmata of bleeding was found at the pylorus. The lesion was 5 mm in largest dimension. Biopsies were taken with a cold forceps for histology. Verification of patient identification for the specimen was done. Biopsies were taken with a cold forceps for Helicobacter pylori testing. Verification of patient identification for the specimen was done. Estimated blood loss was minimal. Patchy moderate inflammation characterized by erythema, friability and granularity was found in the duodenal bulb. Biopsies were taken with a cold forceps for histology. Verification of patient identification for the specimen was done. Estimated blood loss was minimal. Impression: - Z-line irregular, 39 cm from the incisors. Biopsied. - Bile gastritis. - Non-bleeding gastric ulcer with no stigmata of bleeding. Biopsied. - Chronic bile duodenitis. Biopsied. Recommendation: - Discharge patient to home. - Resume previous diet. - Continue present medications. - Await pathology results. Procedure Code(s): --- Professional --- 17812, Esophagogastroduodenoscopy, flexible, transoral; with biopsy, single or multiple CPT copyright 2021 [employer]. All rights reserved. The codes documented in this report are preliminary and upon apartment maintenance review may be revised to meet current compliance requirements. Luis Alberto Ng DO 06/18/2024 12:34:07 PM This report has been signed electronically. Number of Addenda: 0 Note Initiated On: 06/18/2024 12:14 PM
--- NOTE | 2024-06-18 12:34 | OP.CCLET_ITS ---
06/18/2024 Raymundo Sierra Re : Upper GI endoscopy procedure for Ayanna Wesley Dear Lisbet This procedure was performed on Tuesday, June 18, 2024. My impressions and recommendations are as follows: Impressions : - Z-line irregular, 39 cm from the incisors. Biopsied. - Bile gastritis. - Non-bleeding gastric ulcer with no stigmata of bleeding. Biopsied. - Chronic bile duodenitis. Biopsied. Recommendations : - Discharge patient to home. - Resume previous diet. - Continue present medications. - Await pathology results. My findings are described in the full procedure note, which is enclosed. If I can be of further assistance, please feel free to contact me at . Sincerely, Luis Alberto Ng, 06/18/2024 12:34:07 PM This report has been signed electronically.
[2024-06-18 12:36] LABS: Bedside Glucose 96 mg/dL (74-106)
--- NOTE | 2024-06-18 12:36 | PCM.POST.ANE ---
Anesthesia: Postop Eval I Current Vital Signs Temperature: 97.8 F Pulse Rate: 84 Blood Pressure: 131/83 Respiratory Rate: 16 Pulse Ox: 95 Oxygen Delivery Method: Room Air Assessment Airway patent: Yes Spontaneous unlabored respirations: Yes Mental status: Awake and Calm nausea: No Vomiting: No Anesthesia Complication: No Fluid Hydration Crystalloid volume administer (ml): 20 Total IV fluid infused: 20 Progress Note Anesthesia document: Postop Eval 1 completed: Yes
--- NOTE | 2024-06-18 16:51 | PCM.POSTANE2 ---
Anesthesia Postop Eval I Sum Postop Eval Completion status Anesthesia document: Postop Eval 1 completed: Yes Anesthesia Postop Eval I Summary Anesthesia Postop Eval I Summary: Anesthesia Postop Eval I: Assessment Summary Airway patent Yes 06/18/24 12:37 [email or web address] Spontaneous unlabored Yes 06/18/24 12:37 [email or web address] respirations Mental status Awake,Calm 06/18/24 12:37 [email or web address] nausea No 06/18/24 12:37 [email or web address] Vomiting No 06/18/24 12:37 [email or web address] Anesthesia Postop Eval I: Fluid Summary Crystalloid volume administer 20 06/18/24 12:37 [email or web address] (ml) Colloids volume administered ( ml) Blood Product volume administered (ml) Total IV fluid infused 20 06/18/24 12:37 [email or web address] Anesthesia Postop Eval I: Summary Notes Anesthesia Complication No 06/18/24 12:37 [email or web address] Anesthesia Complication Comment: Post-operative progress note Anesthesia: Postop Eval II Evaluation Mental status: Awake and Calm Pain Level: 0 nausea: No Vomiting: No Complications Anesthesia Complication: No
== END 2024-06-18 13:34 | disposition home or self-care (01) ==
LOC: EN 11:10 → AC 11:11
PROVIDERS: PCP Physician Assistant Medical; Referring Provider Physician Assistant Medical; Visit Provider Internal Medicine Gastroenterology
PROC: 0DJ08ZZ Inspection of Upper Intestinal Tract, Via Natural or Artificial Opening Endoscopic (ICD-10-PCS; CPT 43235; principal; 2024-06-18 11:55)
DX: K29.70 Gastritis, unspecified, without bleeding (principal); F60.5 Obsessive-compulsive personality disorder; E66.01 Morbid (severe) obesity due to excess calories; Z68.41 Body mass index [BMI] 40.0-44.9, adult; E11.9 Type 2 diabetes mellitus without complications; K29.80 Duodenitis without bleeding; K21.9 Gastro-esophageal reflux disease without esophagitis; K25.9 Gastric ulcer, unspecified as acute or chronic, without hemorrhage or perforation; K52.9 Noninfective gastroenteritis and colitis, unspecified; K76.0 Fatty (change of) liver, not elsewhere classified; I10 Essential (primary) hypertension; D50.9 Iron deficiency anemia, unspecified; E53.8 Deficiency of other specified B group vitamins; E55.9 Vitamin D deficiency, unspecified; F41.9 Anxiety disorder, unspecified; F43.10 Post-traumatic stress disorder, unspecified; G25.81 Restless legs syndrome; G47.30 Sleep apnea, unspecified; J45.909 Unspecified asthma, uncomplicated; Z80.0 Family history of malignant neoplasm of digestive organs; Z88.0 Allergy status to penicillin; Z90.49 Acquired absence of other specified parts of digestive tract; Z86.19 Personal history of other infectious and parasitic diseases; Z87.891 Personal history of nicotine dependence; Z79.899 Other long term (current) drug therapy
CPT/HCPCS: 43239; 82962; 88305; 88312; 88342; A4216; J2405

== ENCOUNTER → 2024-06-20 | Outpatient (CLI) | payer MEDICARE, MEDICAID, SELFPAY ==
--- NOTE | 2024-06-20 07:58 | US_ITS ---
STUDY: ABDOMINAL ULTRASOUND - RIGHT UPPER QUADRANT; ELASTOGRAPHY REASON FOR VISIT: Female, 38 years old. Fatty infiltration of the liver. TECHNIQUE: Ultrasound evaluation of the right upper quadrant was performed with real-time and static duvall-scale imaging. Point quantification shear wave elastography was performed ([employer]). TECHNICAL QUALITY: Adequate. COMPARISON: Comparison is made with prior study dated November 30, 2023. FINDINGS: Liver: The liver is enlarged measures 20.2 cm. There is increased echogenicity consistent with fatty infiltration. The bile ducts are within normal limits. There is hepatic color flow. The direction of portal flow is hepatopetal. There is no demonstrated mass lesion. Median liver stiffness measured 10.2 kPa. Gallbladder: The patient is status post cholecystectomy. Common Bile Duct (C.B.D.): The common bile duct measures 3.3 mm. Pancreas: There is increased echogenicity of the pancreas. There is no demonstrated pancreatic mass or cyst. Right Kidney: Normal size of the right kidney. The right kidney measures 10.5 cm x 6.9 cm x 4.8 cm. Normal renal cortex. The right cortex measures 1.4 cm. There is no demonstrated renal mass or cyst. There is no right hydronephrosis. US/ABD Limited w/ Elastography IMPRESSION: 1. Liver stiffness measures 10.2 kPa compatible with F2-F3 (Mild to moderate liver fibrosis) Metavir score. 2. Hepatomegaly and fatty evaluation of the liver. Electronically Signed: Santiago Chang MD at 14:37 EDT ,
== END | disposition home or self-care (01) ==
LOC: US 07:57
PROVIDERS: PCP Physician Assistant Medical; Referring Provider Student in an Organized Health Care Education/Training Program; Visit Provider Student in an Organized Health Care Education/Training Program
DX: K76.0 Fatty (change of) liver, not elsewhere classified (principal)
CPT/HCPCS: 76705; 76981

== ENCOUNTER → 2024-07-30 | Outpatient (CLI) | payer MEDICARE, MEDICAID, SELFPAY ==
--- NOTE | 2024-07-30 10:44 | NM_ITS ---
CLINICAL: 38-year-old female with history of refractory dyspepsia. SEMI-SOLID PHASE 99m Tc SULFUR COLLOID GASTRIC EMPTYING STUDY COMPARISON: Abdominal ultrasound report 06/20/2024 FINDINGS: The patient was administered 1.1 mCi of 99m Tc sulfur colloid mixed with oatmeal and consumed per os. Image acquisitions in the anterior-posterior projections were obtained for 60 minutes. There is prompt visualization of the stomach. There is no gastroesophageal reflux identified. First order kinetics are maintained throughout the duration of the acquisitions. The T ? linear fit was calculated to be 78.62 minutes, (Normal: 12-56 minutes). NM/Gastric Emptying Study IMPRESSION: 1. ABNORMAL 99m Tc sulfur colloid semi-solid phase (oatmeal) gastric emptying imaging examination. A. There is delayed semi-solid phase gastric emptying compared to normal controls with demonstrated first order kinetics throughout all components of the examination. (Kobe et al, J Nucl Med Tech 38: 186, 2010). Electronically Signed: Shaan Newman DO at 7:09 EST ,
== END | disposition home or self-care (01) ==
LOC: NM 10:43
PROVIDERS: PCP Physician Assistant Medical; Referring Provider Student in an Organized Health Care Education/Training Program; Visit Provider Student in an Organized Health Care Education/Training Program
DX: K21.9 Gastro-esophageal reflux disease without esophagitis (principal)
CPT/HCPCS: 78264; A9541

== ENCOUNTER 2024-12-26 12:47 | Day surgery (SDC) | payer MEDICARE, MEDICAID, SELFPAY ==
--- NOTE | 2024-10-24 15:30 | PAT.ANESEVAL ---
Pre-Assessment Diagnosis/Proposed Procedure Planned Operative Procedure(s): COLONOSCOPY Anesthesia History Anesthesia History - at risk specialist: Anesthesia History - at risk specialist Hx Hospitalization No 10/24/24 12:24 Any Problems With Anesthesia Yes: NAUSEA 10/24/24 12:24 Cholinesterase deficiency No 10/24/24 12:24 You/Your Family Experience No 10/24/24 12:24 fever (hyperthermia) with Relationship Recent Exposure to Contagious No 06/18/24 11:31 Disease Does patient have nerve No 10/24/24 12:24 stimulator Patient instructed to have device shut off --Does patient have Pacemaker or ICD? When Was Last Pacemaker Check QUESTION #4 FULL TEXT: You/Your Family Experience fever (hyperthermia) with Anesthesia Last Oral Intake Last Oral intake: Last Oral Intake NPO since Meds taken in AM with sips of water? Meds patient instructed to take am of surgery PONV PONV - at risk specialist: PONV - at risk specialist Female Yes 10/24/24 12:24 HX of Motion Sickness No 10/24/24 12:24 HX of N/V After Surgery No 10/24/24 12:24 Non-Smoker Yes 10/24/24 12:24 Duration of Surgery greater No 10/24/24 12:24 than 60 minutes Number of Risk Factors 2 10/24/24 12:24 PONV Score Moderate Risk 10/24/24 12:24 Height & Weight Height & Weight: Anesthesia: Height & Weight Height 5 ft 4 in 06/18/24 11:31 Respiratory Assessment Respiratory Assessment - at risk specialist: Respiratory Tract Infection Hx - at risk specialist Hx Respiratory Tract Infection No 10/24/24 12:24 STOP Sleep Apnea STOP Sleep Apnea - at risk specialist: STOP Sleep Apnea - at risk specialist Hx Hypertension No 10/24/24 12:24 Hx Sleep Apnea Yes: NO MACHINE 10/24/24 12:24 CPAP No 10/24/24 12:24 BIPAP No 10/24/24 12:24 Do you snore loudly (louder than talking or can be heard Do you often feel tired/ fatigued/ sleepy during daytime? Has anyone observed you stop breathing during sleep? STOP Results Positive 10/24/24 12:24 QUESTION #5 FULL TEXT : Do you snore loudly (louder than talking or can be heard through closed doors)? 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 Specify any problems Hx of Preganancy in last 3 No 10/24/24 12:24 Months Nurse Filling Out Transfusion VCHRISTIN 10/24/24 12:24 & Questions: Date: 10/24/24 10/24/24 12:24 Time: 12:25 10/24/24 12:24 Patient unable to answer at this time (ie. confused, unrespo /Reproduction History /Reproductive History - at risk specialist: /Reproductive Hx- at risk specialist Hx Now No 10/24/24 12:24 Gestational Age (in weeks): EDC: Hx Hx Para Hx Section SAB No 10/24/24 12:24 [facility] Medical History (Updated 10/24/24 @ 12:24 by Reyna Guzman) History of echocardiogram Hypertension Anxiety Diabetes Restless legs Migraine headache Gastric reflux Sleep apnea Former smoker History of stress test Tachycardia Cardiology follow-up encounter Gastric polyp Steatosis of liver Restrictive lung disease PTSD (post-traumatic stress disorder) Ventricular 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 Iron deficiency anemia Hypercholesteremia Chiari malformation Arthralgia of right temporomandibular joint Allergic rhinitis Abdominal pain Migraine without aura, intractable, with status migrainosus Anxiety Bloody diarrhea Alternating constipation and diarrhea Low vitamin B12 level Vitamin D deficiency Low ferritin Home Medications ?Medication ?Instructions ?Recorded ?Last Taken ?Type cholecalciferol (vitamin D3) 1,250 1,250 mcg PO 2XW 07/15/22 06/13/24 History mcg (50,000 unit) tablet (Dialyvite Vitamin D3 Max) ferrous sulfate 325 mg (65 mg 325 mg PO DAILY 07/15/22 10/21/24 History iron) tablet (Feosol) lorazepam 1 mg tablet (Ativan) 1 mg PO DAILY PRN Anxiety 07/15/22 Unknown History mecobalamin (vitamin B12) 1,000 1,000 mcg PO DAILY 07/15/22 06/17/24 History mcg chewable tablet metoprolol tartrate 50 mg tablet 25 mg PO BID 07/15/22 06/18/24 History (Lopressor) albuterol sulfate 90 mcg/actuation 2 puff inhalation Q6H PRN SOB 09/16/22 Unknown History aerosol inhaler pregabalin 25 mg capsule (Lyrica) 25 mg PO .QAM 01/25/24 06/17/24 History famotidine 20 mg tablet 20 mg PO BID 05/25/24 06/16/24 History omeprazole 20 mg capsule,delayed 20 mg PO BID 05/25/24 06/16/24 History release semaglutide 0.25 mg or 0.5 mg (2 0.5 mg subcut QWEEK 05/25/24 10/06/24 History mg/1.5 mL) subcutaneous pen injector (Ozempic) fluticasone propionate 50 1 spray intranasal DAILY PRN 06/13/24 06/17/24 History mcg/actuation nasal allergy symptoms spray,suspension (24 Hour Allergy Relief) pregabalin 50 mg capsule (Lyrica) 50 mg PO QHS 06/13/24 06/17/24 History Allergy/AdvReac Type Severity Reaction Status Date / Time levofloxacin (From Levaquin) AdvReac extreme Verified 10/24/24 12:16 dizziness Penicillins AdvReac hives Verified 10/24/24 12:16 Family History Mother Hypertension Father Malignant neoplasm of urinary bladder Brother Malignant neoplasm of stomach Grandmother Cancer Grandfather Myocardial infarction FHx: thyroid disease Surgical History (Updated 10/24/24 @ 12:24 by Reyna Guzman) History of esophagogastroduodenoscopy (EGD) Hx of colonoscopy History of bilateral tubal ligation S/P trigger finger release Hx of tonsillectomy History of loop electrosurgical excision procedure (LEEP) Status post laparoscopic Ladan fundoplication S/P excision of lipoma H/O laparoscopy H/O left knee surgery H/O foot surgery History of esophagogastroduodenoscopy H/O colonoscopy Hx of cholecystectomy Previous section History of carpal tunnel surgery of right wrist H/O cardiac catheterization History of appendectomy H/O abdominal surgery Social History Smoking Status: Former smoker quit date: 04/05/07 Audit: Pertinent Findings Pertinent Findings EKG Perinent findings: November 04, 2022. Sinus tachycardia at 111 bpm. Stress test pertinent findings: August 12, 2020. Negative for ischemia. Ejection fraction 65%. Echo (EF%) pertinent findings: July 26, 2022. Ejection fraction 65%. PA systolic pressure is 28 mmHg. No aortic stenosis noted. Recommendation Anesthesia Recommendation Anesthesia recommendation: OPTIMIZED for anesthesia
[2024-12-26] VITALS (8 sets, daily range): BP systolic 102–120; BP diastolic 61–109; PULSE 67–78; RESP 16; TEMP 36.3–36.6; O2SAT 98–100; BMI 36.7
--- NOTE | 2024-12-26 12:55 | PRE.ANES_ITS ---
ASA Classification* ASA Classification ASA Classification: 2 Assessment & Plan Anesthesia* Anesthesia Assessment Anesthesia Assessment: Discussed sedation and/or anesthesia options, risks, benefits, and alternatives with patient/parents/legal guardian/POA. Questions invited. The patient/parents/legal guardian/POA seems to understand and agrees to proceed with anesthesia plan. Reviewed the physical assessment, medical history, allergy history and patient home medications list prior to surgery/procedure/anesthetic and documented any changes. Performed airway and anesthesia risk assessments. Anesthesia Type Anesthesia Type: MAC Anesthesia Focused Assessment* Airway Assessment Mouth opens: >3 cm Mallampati Score: II Focused Labs Anesthesia Preop lab: CBC WBC 10.2 K/mm3 (4.4-11.0) 11/10/22 11:11/10/22 RBC 4.79 M/mm3 (4.2-5.4) 11/10/22 11:11/10/22 Hgb 14.0 g/dL (12.0-15.0) 11/10/22 11:11/10/22 Hct 42.4 % (37-47) 11/10/22 11:11/10/22 Plt Count 406 K/mm3 (150-450) 11/10/22 11:11/10/22 CHEMISTRY Potassium 3.1 mmol/L (3.5-5.1) L 11/10/22 11:11/10/22 Sodium 138 mmol/L (136-145) 11/10/22 11:11/10/22 BUN 11 mg/dL (7-18) 11/10/22 11:11/10/22 Creatinine 0.72 mg/dL (0.55-1.02) 11/10/22 11:11/10/22 Glucose 135 mg/dL (74-106) H 11/10/22 11:11/10/22 POC Glucose 96 mg/dL (74-106) 06/18/24 11:06/18/24 COAG Pre-Assessment Diagnosis/Proposed Procedure Planned Operative Procedure(s): COLONOSCOPY Anesthesia History 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 When Was Last Pacemaker Check QUESTION #4 FULL TEXT: You/Your Family Experience fever (hyperthermia) with Anesthesia Last Oral Intake Last Oral intake: Last Oral Intake NPO since Meds taken in AM with sips of water? 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 Female Yes 12/20/24 14:00 HX of Motion Sickness No 12/20/24 14:00 HX of N/V After Surgery No 12/20/24 14:00 Non-Smoker Yes 12/20/24 14:00 Duration of Surgery greater No 12/20/24 14:00 than 60 minutes Number of Risk Factors 2 12/20/24 14:00 PONV Score Moderate Risk 12/20/24 14:00 Height & Weight Height & Weight: Anesthesia: Height & Weight Height 5 ft 4 in 06/18/24 11:31 Respiratory Assessment Respiratory Assessment - press operator printing: Respiratory Tract Infection Hx - press operator printing Hx Respiratory Tract Infection No 12/20/24 14:00 STOP Sleep Apnea STOP Sleep Apnea - press operator printing: STOP Sleep Apnea - press operator printing Hx Hypertension No 12/20/24 14:00 Hx Sleep Apnea Yes: NO MACHINE 12/20/24 14:00 CPAP No 12/20/24 14:00 BIPAP No 12/20/24 14:00 Do you snore loudly (louder than talking or can be heard Do you often feel tired/ fatigued/ sleepy during daytime? Has anyone observed you stop breathing during sleep? STOP Results Positive 12/20/24 14:00 QUESTION #5 FULL TEXT : Do you snore loudly (louder than talking or can be heard through closed doors)? 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 Specify any problems Hx of Preganancy in last 3 No 12/20/24 14:00 Months Nurse Filling Out Transfusion VCHRISTIN 12/20/24 14:00 & Questions: Date: 12/20/24 12/20/24 14:00 Time: 14:00 12/20/24 14:00 Patient unable to answer at this time (ie. 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 Iron deficiency anemia Hypercholesteremia Chiari malformation Arthralgia of right temporomandibular joint Allergic rhinitis Abdominal pain Migraine without aura, intractable, with status migrainosus Anxiety Bloody diarrhea Alternating constipation and diarrhea Low vitamin B12 level Vitamin D deficiency Low ferritin Home Medications ?Medication ?Instructions ?Recorded ?Last Taken ?Type cholecalciferol (vitamin D3) 1,250 1,250 mcg PO 2XW 06/13/24 History mcg (50,000 unit) tablet (Dialyvite Vitamin D3 Max) ferrous sulfate 325 mg (65 mg 325 mg PO DAILY 07/15/22 12/19/24 History iron) tablet (Feosol) lorazepam 1 mg tablet (Ativan) 1 mg PO DAILY PRN Anxie ty 07/15/22 Unknown History mecobalamin (vitamin B12) 1,000 1,000 mcg PO DAILY 06/2606/17/24 History mcg chewable tablet metoprolol tartrate 50 mg tablet 25 mg PO BID 07/15/22 06/18/24 History (Lopressor) albuterol sulfate 90 mcg/actuation 2 puff inhalation Q 6H PRN SOB 09/16/22 Unknown History aerosol inhaler pregabalin 25 mg capsule (Lyrica) 25 mg PO .QAM 06/17/24 History famotidine 20 mg tablet 20 mg PO BID 05/25/24 History omeprazole 20 mg capsule,delayed 20 mg PO BID 05/25/24 06/16/24 History release semaglutide 0.25 mg or 0.5 mg (2 0.5 mg subcut QWEEK 0 05/25/24 12/14/24 History mg/1.5 mL) subcutaneous pen injector (Ozempic) fluticasone propionate 50 1 spray intranasal DAILY PRN 06/13/24 06/17/24 History mcg/actuation nasal allergy symptoms spray,suspension (24 Hour Allergy Relief) pregabalin 50 mg capsule (Lyrica) 50 mg PO QHS 4 06/17/24 History Allergy/AdvReac Type Severity Reaction Status Date / Time levofloxacin (From Levaquin) AdvReac extreme Verified 12/20/24 13:57 dizziness Penicillins AdvReac hives Verified 12/20/24 13:57 Family History Mother Hypertension Father Malignant neoplasm of urinary bladder Brother Malignant neoplasm of stomach Grandmother Cancer Grandfather Myocardial infarction FHx: thyroid disease Surgical History History of esophagogastroduodenoscopy (EGD) Hx of colonoscopy History of bilateral tubal ligation S/P trigger finger release Hx of tonsillectomy History of loop electrosurgical excision procedure (LEEP) Status post laparoscopic Ladan fundoplication S/P excision of lipoma H/O laparoscopy H/O left knee surgery H/O foot surgery History of esophagogastroduodenoscopy H/O colonoscopy Hx of cholecystectomy Previous section History of carpal tunnel surgery of right wrist H/O cardiac catheterization History of appendectomy H/O abdominal surgery Social History Smoking Status: Former smoker quit date: 04/05/07 Review of Systems (Anesthesia) ROS Narrative System reviewed and no additional complaints, except as documented.
[2024-12-26] MEDS: Lactated Ringers 1,000 ML 15 ML IV (13:45)
--- NOTE | 2024-12-26 13:45 | COLBX_PTH ---
PATIENT: YURI LOPEZ LOC: EN U#:[id number] AGE/SX: 39/F ROOM: RE12/26/[address]: Dr. Luis Alberto Ng DO : 1985 BED: DIS: 12/26/2024 SPEC #: [id number] RECD: 12/27/24 08:51 STATUS: ADA REAshwin #: [id number] CLAUDE: 12/26/24 13:[address]: Luis Alberto Ng DEPT: SURGICAL PATHOLOGY RECD BY: Pancho Chen ENTERED: 12/27/24 08:51 SP TYPE: COLON BX OTHR DR: TOBY Sierra Tissues: A - Ileum, NOS B - COLON BIOPSY Procedures: Surgery Specimen Level IV HEADER OPERATION: Colonoscopy biopsy PRE-OP DIAGNOSIS: Chronic diarrhea TISSUE SUBMITTED: A- Terminal ileum biopsy, B- Random biopsy MICROSCOPIC DIAGNOSIS A. Small bowel, terminal ileum, biopsy: * Normal villous architecture with mucosal lymphoid aggregates. B. Colon, random, biopsy: * No specific pathologic change. * The histologic features of microscopic colitis are not demonstrated. MICROSCOPIC DESCRIPTION Slides are reviewed. GROSS DESCRIPTION A. Received in formalin in a container labeled with the patient's name, date of , and terminal ileum biopsy are 2 hines-pink fragments of mucosal tissue, each measuring 0.5 x 0.3 x 0.3 cm. Submitted in toto in A1. B. Received in formalin in a container labeled with the patient's name, date of , and random colon biopsy are multiple hines-pink fragments of mucosal tissue measuring 2.0 x 1.0 x 0.2 cm in aggregate. Submitted in toto in B1. [facility] 12/26/2024 CPT:[id number]
--- NOTE | 2024-12-26 13:52 | HP.PCM_ITS ---
HPI - General General Date of Admission: 12/26/24 Date of Service: 12/26/24 Chief Complaint: diarrhea HPI Narrative YURI LOPEZ, is a 39 F who presents with a chief complaint: diarrhea Prior workup: ? Ladan 2016 for reflux ? Stool C.Difficile WNL. ? Stool C.Difficile +? Start Flagyl and vancomycin (vancomycin delayed start r/t? a child with severe allergy). ? *[facility] established 11.10.22 with loose stools since following doxycycline and ZPak use. Reports C.difficile infection as the initial occurrence; but has had recurrent E.Coli and salmonella stool infections with treatment by ID. Currently stools are liquid with abdominal cramping and blood with intermittent fecal leaking. Idiopathic anemia treated with oral iron. Start colestipol ? Biochemical 11.10.22 CBC, ESR, CMP (K+ 3.1), GA(H 354)ME, NATHALY comp, ANCA, DARVIN, IBD without pertinent abnormality.? CRP H28.7 ? EGD and colonoscopy 01.25.23 EGD LA Grade A esophagitis without metaplasia; Ladan wrap loose; mild portal gastropathy; duodenitis. ? Colonoscopy single hyperplastic polyp; congested mucosa. Random biopsies without pathologic changes Contact 05.11.23 as f/u noting continued episodes of loose stools multiple times a week. Requesting labs to be drawn at [facility] ? Stool OSH calprotectin, elastase, lactoferrin, EP, O/P, giardia WNL? CDifficile PCR +, toxin B? Start difficid 05.18.23 OV 06.01.23 for the last week she has been without loose stools. Difficid ended Tuesday. OV 3.24 continues to have loose stools and abdominal cramping with urgency related incontinence on random days throughout the week; will often last several days and then spontaneously resolve. OV 05.25.24 Pt recently started ozempic and went through a period of constipation. She was taking colace and miralax every other day. She is now back to having diarrhea with a significant flare about a week ago. She was going 5o+ times within a 24 hour period. This is similar to when she has had c.dif in the past. Her stool is starting to become more formed now. Her heartburn and nausea is persistent and much worse after starting the ozempic. She increased omeprazole to twice daily and added famotidine BID as well. This has been somewhat helpful. She likes being on the ozempic as it is lower her A1c and helping her lose weight but she knows some of these symptoms may be related to it. [facility] Medical History History of echocardiogram Hypertension Anxiety Diabetes Restless legs Migraine headache Gastric reflux Sleep apnea Former smoker History of stress test Tachycardia Cardiology follow-up encounter Gastric polyp Steatosis of liver Restrictive lung disease PTSD (post-traumatic stress disorder) Ventricular 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 Iron deficiency anemia Hypercholesteremia Chiari malformation Arthralgia of right temporomandibular joint Allergic rhinitis Abdominal pain Migraine without aura, intractable, with status migrainosus Anxiety Bloody diarrhea Alternating constipation and diarrhea Low vitamin B12 level Vitamin D deficiency Low ferritin Home Medications ?Medication ?Instructions ?Recorded ?Last Taken ?Type cholecalciferol (vitamin D3) 1,250 1,250 mcg PO 2XW 06/13/24 History mcg (50,000 unit) tablet (Dialyvite Vitamin D3 Max) ferrous sulfate 325 mg (65 mg 325 mg PO DAILY 07/15/22 12/19/24 History iron) tablet (Feosol) lorazepam 1 mg tablet (Ativan) 1 mg PO DAILY PRN Anxie ty 07/15/22 Unknown History mecobalamin (vitamin B12) 1,000 1,000 mcg PO DAILY 06/2606/17/24 History mcg chewable tablet metoprolol tartrate 50 mg tablet 25 mg PO BID 07/15/22 12/26/24 09:30 History (Lopressor) albuterol sulfate 90 mcg/actuation 2 puff inhalation Q 6H PRN SOB 09/16/22 Unknown History aerosol inhaler pregabalin 25 mg capsule (Lyrica) 25 mg PO .QAM 06/17/24 History famotidine 20 mg tablet 20 mg PO BID 05/25/24 History omeprazole 20 mg capsule,delayed 20 mg PO BID 05/25/24 06/16/24 History release semaglutide 0.25 mg or 0.5 mg (2 0.5 mg subcut QWEEK 0 05/25/24 12/14/24 History mg/1.5 mL) subcutaneous pen injector (Ozempic) fluticasone propionate 50 1 spray intranasal DAILY PRN 06/13/24 06/17/24 History mcg/actuation nasal allergy symptoms spray,suspension (24 Hour Allergy Relief) pregabalin 50 mg capsule (Lyrica) 50 mg PO QHS 4 06/17/24 History Allergy/AdvReac Type Severity Reaction Status Date / Time levofloxacin (From Levaquin) AdvReac extreme Verified 12/26/24 13:41 dizziness Penicillins AdvReac hives Verified 12/26/24 13:41 Family History Mother Hypertension Father Malignant neoplasm of urinary bladder Brother Malignant neoplasm of stomach Grandmother Cancer Grandfather Myocardial infarction FHx: thyroid disease Surgical History History of esophagogastroduodenoscopy (EGD) Hx of colonoscopy History of bilateral tubal ligation S/P trigger finger release Hx of tonsillectomy History of loop electrosurgical excision procedure (LEEP) Status post laparoscopic Ladan fundoplication S/P excision of lipoma H/O laparoscopy H/O left knee surgery H/O foot surgery History of esophagogastroduodenoscopy H/O colonoscopy Hx of cholecystectomy Previous section History of carpal tunnel surgery of right wrist H/O cardiac catheterization History of appendectomy H/O abdominal surgery Social History Smoking Status: Former smoker quit date: 04/05/07 ROS Constitutional Constitutional: Denies fatigue, fever(s), poor appetite, weight gain or weight loss Gastrointestinal Gastrointestinal: Denies belching, bloating, change in bowel habits, change in stool character, chewing difficulty, coffee ground emesis, constipation, cramping, diarrhea, dyspepsia, dysphagia, early satiety, excessive flatus, fecal incontinence, heartburn, hematemesis, hematochezia, hemorrhoids, loose stools, melena, nausea, odynophagia, rectal bleeding, tenesmus, vomiting or weight changes Vital Signs Vital Signs Vital Signs: 12/26/24 13:42 12/26/24 13:42 Temperature 97.6 F L Temperature Source Temporal Pulse Rate 78 Respiratory Rate 16 Respiratory Pattern Normal Blood Pressure 120/109 H Blood Pressure Mean 112 Blood Pressure Source Monitor Blood Pressure Position Semi-Fowlers Blood Pressure Location Left Arm Pulse Ox 98 Oxygen Delivery Method Room Air Weight Weight: 214 lb 1.102 oz Body Mass Index (BMI) 36.7 Physical Exam Const alert, oriented x3, no apparent distress and healthy appearing General Appearance: cooperative GI normal to inspection, nondistended, normoactive bowel sounds, soft to palpation, non-tender and non-distended Percussion: normal to percussion Rectal Exam: deferred Assessment & Plan Assessment/Plan (1) Chronic diarrhea: PLAN: Assessment and Plan Assessment and Plan (1) Chronic diarrhea: Status: Chronic Comment: Historical (2) GERD (gastroesophageal reflux disease): Status: Acute Plan: Patient is a 38 yo female with PMHx of fatty liver, GERD, diarrhea and c.dif. She is here today for f/u. Since starting ozempic a few months ago she has worsening heartburn and some difficulty swallowing. Her PCP put her on omeprazole and famotidine BID. This has been helpful but she continues to have some heartburn. I will order a GES to assess her stomach motility as she has refractory reflux. She will also undergo EGD to look for signs of esophagitis or gastritis. About a week ago she was having severe diarrhea with 50+ bowel movements in a day. This was similar to when she has had c.dif. I will order stool testing to rule out infection or inflammation. She has had c.dif three times and she may need to have infusion therapy if she continues to have these infections. She has hx of fatty liver but has never had elastography; this was ordered. She is agreeable to this plan. She will f.u in 3 months -EGD -GES ordered -Stool testing -Liver elastogprahy -f/u in 3 months (3) Steatosis of liver: Status: Acute Orders:
[2024-12-26 14:07] LABS: Bedside Glucose 83 mg/dL (74-106)
--- NOTE | 2024-12-26 14:30 | PCM.POST.ANE ---
Anesthesia: Postop Eval I Current Vital Signs Temperature: 97.4 F Pulse Rate: 71 Blood Pressure: 105/63 Respiratory Rate: 16 Pulse Ox: 100 Oxygen Delivery Method: Room Air Assessment Airway patent: Yes Spontaneous unlabored respirations: Yes Mental status: Asleep nausea: No Vomiting: No Anesthesia Complication: No Fluid Hydration Crystalloid volume administer (ml): 600 Total IV fluid infused: 600 Progress Note Anesthesia document: Postop Eval 1 completed: Yes
--- NOTE | 2024-12-26 14:37 | OP.COLON_ITS ---
Patient Name: Ayanna Wesley Procedure Date: 12/26/2024 1:56 PM Date of : 1985 Age: 39 Procedure: Colonoscopy Indications: Chronic diarrhea, Clinically significant diarrhea of unexplained origin Providers: Luis Alberto Ng DO Referring MD: Raymundo Sierra Medicines: Monitored Anesthesia Care Patient Profile: This is a 39 year old female. Refer to note in patient chart for documentation of history and physical. Last Colonoscopy: date unknown. Unable to locate last colonoscopy report. Complications: No immediate complications. Procedure: Pre-Anesthesia Assessment: - Prior to the procedure, a History and Physical was performed, and patient medications and allergies were reviewed. The patient is competent. The risks and benefits of the procedure and the sedation options and risks were discussed with the patient. All questions were answered and informed consent was obtained. Patient identification and proposed procedure were verified by the physician in the pre-procedure area. Mental Status Examination: alert and oriented. Airway Examination: normal oropharyngeal airway and neck mobility. Respiratory Examination: clear to auscultation. CV Examination: normal. Prophylactic Antibiotics: The patient does not require prophylactic antibiotics. Prior Anticoagulants: The patient has taken no anticoagulant or antiplatelet agents except for NSAID medication. ASA Grade Assessment: II - A patient with mild systemic disease. After reviewing the risks and benefits, the patient was deemed in satisfactory condition to undergo the procedure. The anesthesia plan was to use monitored anesthesia care (MAC). Immediately prior to administration of medications, the patient was re-assessed for adequacy to receive sedatives. The heart rate, respiratory rate, oxygen saturations, blood pressure, adequacy of pulmonary ventilation, and response to care were monitored throughout the procedure. The physical status of the patient was re-assessed after the procedure. After I obtained informed consent, the scope was passed under direct vision. Throughout the procedure, the patient's blood pressure, pulse, and oxygen saturations were monitored continuously. The colonoscope was introduced through the anus and advanced to the terminal ileum. The colonoscopy was performed without difficulty. The patient tolerated the procedure well. The quality of the bowel preparation was adequate. The terminal ileum, ileocecal valve, appendiceal orifice, and rectum were photographed. Scope In: 2:10:19 PM Scope Withdrawal Time 0 hours 9 minutes 39 seconds Scope Out: 2:23:34 PM Total Procedure Duration Time 0 hours 13 minutes 15 seconds Findings: The perianal and digital rectal examinations were normal. An area of mildly congested mucosa was found in the sigmoid colon, in the descending colon and at the hepatic flexure. Biopsies were taken with a cold forceps for histology. Verification of patient identification for the specimen was done. Estimated blood loss was minimal. The terminal ileum appeared normal. Biopsies were taken with a cold forceps for histology. Verification of patient identification for the specimen was done. Estimated blood loss was minimal. The exam was otherwise without abnormality on direct and retroflexion views. Impression: - Congested mucosa in the sigmoid colon, in the descending colon and at the hepatic flexure. Biopsied. - The examined portion of the ileum was normal. Biopsied. - The examination was otherwise normal on direct and retroflexion views. Recommendation: - Discharge patient to home. - Resume previous diet. - Continue present medications. - Await pathology results. - Repeat colonoscopy for surveillance based on pathology results. Procedure Code(s): --- Professional --- 83955, Colonoscopy, flexible; with biopsy, single or multiple CPT copyright 2021 [employer]. All rights reserved. The codes documented in this report are preliminary and upon enrollment nurse review may be revised to meet current compliance requirements. Luis Alberto Ng DO 12/26/2024 2:37:21 PM This report has been signed electronically. Number of Addenda: 0 Note Initiated On: 12/26/2024 1:56 PM
--- NOTE | 2024-12-26 14:38 | OP.CCLET_ITS ---
12/26/2024 Raymundo Sierra Re : Colonoscopy procedure for Ayanna Wesley Dear Lisbet This procedure was performed on Thursday, December 26, 2024. My impressions and recommendations are as follows: Impressions : - Congested mucosa in the sigmoid colon, in the descending colon and at the hepatic flexure. Biopsied. - The examined portion of the ileum was normal. Biopsied. - The examination was otherwise normal on direct and retroflexion views. Recommendations : - Discharge patient to home. - Resume previous diet. - Continue present medications. - Await pathology results. - Repeat colonoscopy for surveillance based on pathology results. My findings are described in the full procedure note, which is enclosed. If I can be of further assistance, please feel free to contact me at . Sincerely, Luis Alberto Ng, 12/26/2024 2:37:21 PM This report has been signed electronically.
--- NOTE | 2024-12-26 14:54 | PCM.POSTANE2 ---
Anesthesia Postop Eval I Sum Postop Eval Completion status Anesthesia document: Postop Eval 1 completed: Yes Anesthesia Postop Eval I Summary Anesthesia Postop Eval I Summary: Anesthesia Postop Eval I: Assessment Summary Airway patent Yes 12/26/24 14:31 [email or web address] Spontaneous unlabored Yes 12/26/24 14:31 [email or web address] respirations Mental status Asleep 12/26/24 14:31 [email or web address] nausea No 12/26/24 14:31 [email or web address] Vomiting No 12/26/24 14:31 [email or web address] Anesthesia Postop Eval I: Fluid Summary Crystalloid volume administer 600 12/26/24 14:31 [email or web address] (ml) Colloids volume administered ( ml) Blood Product volume administered (ml) Total IV fluid infused 600 12/26/24 14:31 [email or web address] Anesthesia Postop Eval I: Summary Notes Anesthesia Complication No 12/26/24 14:31 [email or web address] Anesthesia Complication Comment: Post-operative progress note Anesthesia: Postop Eval II Evaluation Mental status: Awake Pain Level: 0 nausea: No Vomiting: No
== END 2024-12-26 15:01 | disposition home or self-care (01) ==
LOC: EN 12:48 → AC 12:49
PROVIDERS: PCP Physician Assistant Medical; Referring Provider Physician Assistant Medical; Visit Provider Internal Medicine Gastroenterology
PROC: 0DJD8ZZ Inspection of Lower Intestinal Tract, Via Natural or Artificial Opening Endoscopic (ICD-10-PCS; CPT 45378; principal; 2024-12-26 13:40)
DX: K52.9 Noninfective gastroenteritis and colitis, unspecified (principal); E11.9 Type 2 diabetes mellitus without complications; K21.9 Gastro-esophageal reflux disease without esophagitis; Z87.891 Personal history of nicotine dependence; I10 Essential (primary) hypertension; E78.00 Pure hypercholesterolemia, unspecified; K76.0 Fatty (change of) liver, not elsewhere classified
CPT/HCPCS: 45380; 82962; 88305; J2405